=== PATIENT | female | born 1980 | race Caucasian/White ===

== ENCOUNTER 2016-03-07 22:08 | Emergency (ER) | payer OTHER ==
[~2016-03-07] VITALS: Ht 170.2 cm; Wt 64.0 kg
[~2016-03-07 22:08] MED LIST: CIPRO500 MG PO; CLEOCIN300 MG PO; MOTRIN600 MG PO; PERCOCET 5/31 TABLET PO; SUBOXONE 12 MG1 EACH SL; ZOFRAN ODT4 MG PO
[2016-03-07 22:50] LABS: HEMATOCRIT 38.2 % (36.0-46.0); MCH 28.9 PG (29.0-34.0); MCV 87.6 FL (83-99); MEAN PLAT.VOLUME 10.7 uM^3 (9.5-12.4); PLATELET COUNT 177 K/uL (156-360); RBC DIS.WIDTH-CV 13.2 % (11.8-14.6); RBC DIS.WIDTH-SD 41.8 % (39-53); RED BLOOD COUNT 4.36 M/uL (3.80-5.20); WHITE BLOOD COUNT 4.6 K/uL (4.1-10.2)
[2016-03-07 22:59] LABS: CHLORIDE 107 mEq/L (99-109); POTASSIUM 3.6 mEq/L (3.7-5.4); SODIUM 137 mEq/L (136-147)
[2016-03-07 23:00] LABS: GLUCOSE 72 mg/dL (70-99)
[2016-03-07 23:02] LABS: ANION GAP 10 MEQ/L (2-14)
[2016-03-07 23:04] LABS: GFR ESTIMATE (CALCULATED) > 59 mL/min/
[2016-03-07 23:05] LABS: UREA NITROGEN (BUN) 11 mg/dL (9-23)
[2016-03-08 01:51] LABS: INFLUENZA A VIRAL ANTIGEN NEGATIVE; INFLUENZA B VIRAL ANTIGEN NEGATIVE
[2016-03-08] MEDS ORDERED: VENTOLIN HFA18 GM IH (02:03)
[2016-03-08] MEDS ORDERED: MEDROL DOSEPAK4 MG PO (02:03)
[2016-03-08] MEDS ORDERED: ZITHROMAX Z-PA250 MG PO (02:03)
[2016-03-08] MEDS ORDERED: ROBITUSSIN AC,T10 ML PO (02:03)
[2016-03-08 02:33] VITALS: BP 127/81
== END 2016-03-08 02:35 | disposition home or self-care (01) ==
LOC: RME 22:08 → EME 22:08 → RME 03-08 02:35
PROVIDERS: Physician Assistant
DX: J06.9 Acute upper respiratory infection, unspecified (principal); J98.01 Acute bronchospasm; F17.200 Nicotine dependence, unspecified, uncomplicated
CPT/HCPCS: 71020; 80048; 85027; 87502; 94640; 99281; 99284; J7512

== ENCOUNTER 2016-03-12 19:38 | Emergency (ER) | payer OTHER ==
[~2016-03-12] VITALS: Ht 170.2 cm; Wt 63.7 kg
[~2016-03-12 19:38] MED LIST changes: +MEDROL DOSEPAK4 MG PO; +ROBITUSSIN AC,T10 ML PO; +VENTOLIN HFA18 GM IH; +ZITHROMAX Z-PA250 MG PO
[2016-03-12 20:06] LABS: HEMATOCRIT 43.1 % (36.0-46.0); MCHC 33.4 G/DL (30.0-36.0); MCV 86.7 FL (83-99); MEAN PLAT.VOLUME 10.2 uM^3 (9.5-12.4); RBC DIS.WIDTH-CV 13.4 % (11.8-14.6); RBC DIS.WIDTH-SD 41.9 % (39-53); RED BLOOD COUNT 4.97 M/uL (3.80-5.20)
[2016-03-12 20:07] LABS: PLATELET COUNT 233 K/uL (156-360); WHITE BLOOD COUNT 6.3 K/uL (4.1-10.2)
[2016-03-12 20:17] LABS: CHLORIDE 105 mEq/L (99-109); POTASSIUM 3.6 mEq/L (3.7-5.4); SODIUM 136 mEq/L (136-147)
[2016-03-12 20:18] LABS: GLUCOSE 82 mg/dL (70-99)
[2016-03-12 20:20] LABS: ANION GAP 11 MEQ/L (2-14)
[2016-03-12 20:22] LABS: GFR ESTIMATE (CALCULATED) > 59 mL/min/
[2016-03-12 20:23] LABS: UREA NITROGEN (BUN) 15 mg/dL (9-23)
[2016-03-12 20:26] LABS: TROP-I INTERPRETATION NEGATIVE; TROPONIN-I < 0.01 ng/mL (0.0-0.30)
[2016-03-12 23:50] LABS: TROP-I INTERPRETATION NEGATIVE; TROPONIN-I < 0.01 ng/mL (0.0-0.30)
[2016-03-13] MEDS ORDERED: XANAX0.25 MG PO (01:48)
[2016-03-13 02:10] VITALS: BP 114/54
== END 2016-03-13 04:05 | disposition home or self-care (01) ==
LOC: EME 19:38
PROVIDERS: Emergency Medicine
DX: R00.2 Palpitations (principal); F41.9 Anxiety disorder, unspecified; Z87.442 Personal history of urinary calculi; F17.200 Nicotine dependence, unspecified, uncomplicated
CPT/HCPCS: 71020; 80048; 84484; 85027; 90839; 93005; 99281; 99285; J2270

== ENCOUNTER 2016-06-23 21:25 | Emergency (ER) | payer OTHER ==
[~2016-06-23] VITALS: Ht 170.2 cm; Wt 56.2 kg
[~2016-06-23 21:25] MED LIST changes: +XANAX0.25 MG PO
[2016-06-23 23:10] LABS: MCHC 32.7 G/DL (30.0-36.0); MCV 85.6 FL (83-99); MEAN PLAT.VOLUME 10.3 uM^3 (9.5-12.4); PLATELET COUNT 247 K/uL (156-360); RBC DIS.WIDTH-SD 40.3 % (39-53); RED BLOOD COUNT 5.14 M/uL (3.80-5.20); WHITE BLOOD COUNT 5.6 K/uL (4.1-10.2)
[2016-06-23 23:25] LABS: CHLORIDE 107 mEq/L (99-109); POTASSIUM 4.7 mEq/L (3.7-5.4); SODIUM 140 mEq/L (136-147)
[2016-06-23 23:28] LABS: GLUCOSE 89 mg/dL (70-99)
[2016-06-23 23:29] LABS: ANION GAP 12 MEQ/L (2-14)
[2016-06-23 23:30] LABS: TOTAL BILIRUBIN 1.1 mg/dL (0.0-1.0)
[2016-06-23 23:31] LABS: ALKALINE PHOSPHATASE 82 IU/L (3-129); GFR ESTIMATE (CALCULATED) > 59 mL/min/; SERUM ETHYL ALCOHOL < 10 mg/dL
[2016-06-23 23:33] LABS: UREA NITROGEN (BUN) 10 mg/dL (9-23)
[2016-06-23] MEDS ORDERED: AUGMENTIN875 MG PO (23:43)
[2016-06-24 00:06] LABS: ADD MIUA? YES; BILIRUBIN NEGATIVE; BLOOD NEGATIVE; COLOR YELLOW ((YELLOW)); GLUCOSE (STRIP) NEGATIVE; KETONES NEGATIVE; LEUKOCYTES SMALL; NITRITE NEGATIVE; PROTEIN (STRIP) NEGATIVE; SPECIFIC GRAVITY 1.014 (1.000-1.030)
[2016-06-24 00:20] LABS: BACTERIA RARE /HPF; EPITHELIAL CELLS 2+ /HPF; MUCUS NONE SEEN /LPF; RED BLOOD CELLS 0-5 /HPF (0-5); WHITE BLOOD CELLS 0-5 /HPF (0-5)
[2016-06-24 00:21] LABS: ADD MEDTOX COMMENT Y; AMPHETAMINE NEGATIVE (500 ng/mL); BARBITURATES NEGATIVE (200 ng/mL); BENZODIAZEPINES NEGATIVE (150 ng/mL); COCAINE PRESUMPTIVE POSITIVE (150 ng/mL); INTERNAL CONTROLS VALID? YES; METHADONE NEGATIVE (200 ng/mL); METHAMPHETAMINE NEGATIVE (500 ng/mL); OPIATES (MORPHINE) NEGATIVE (100 ng/mL); OXYCODONE NEGATIVE (100 ng/mL); PHENCYCLIDINE NEGATIVE (25 ng/mL); PROPOXYPHENE NEGATIVE (300 ng/mL); THC CANNABINOIDS NEGATIVE (50 ng/mL); TRICYCLIC ANTIDEPRESSANTS NEGATIVE (300 ng/mL)
[2016-06-24 00:46] VITALS: BP 107/63
== END 2016-06-24 01:02 | disposition home or self-care (01) ==
LOC: EME 21:25
PROVIDERS: Emergency Medicine
DX: S02.40DA Maxillary fracture, left side, initial encounter for closed fracture (principal); S02.2XXA Fracture of nasal bones, initial encounter for closed fracture; S00.83XA Contusion of other part of head, initial encounter; F19.10 Other psychoactive substance abuse, uncomplicated; Y09 Assault by unspecified means; Y92.830 Public park as the place of occurrence of the external cause; Y07.9 Unspecified perpetrator of maltreatment and neglect; F17.200 Nicotine dependence, unspecified, uncomplicated; Z87.442 Personal history of urinary calculi
CPT/HCPCS: 70450; 70486; 72125; 80053; 81003; 84999; 85027; 99281; 99285; G0480; J3010; J7030

== ENCOUNTER 2016-07-10 19:13 | Inpatient (IN) | payer OTHER ==
[~2016-07-10] VITALS: Ht 170.2 cm; Wt 56.3 kg
[~2016-07-10 19:13] MED LIST changes: +AUGMENTIN875 MG PO
[2016-07-10 20:41] LABS: HEMATOCRIT 37.5 % (36.0-46.0); MCH 27.7 PG (29.0-34.0); MCHC 31.7 G/DL (30.0-36.0); MCV 87.2 FL (83-99); PLATELET COUNT 220 K/uL (156-360); RBC DIS.WIDTH-CV 13.3 % (11.8-14.6); RBC DIS.WIDTH-SD 42.4 % (39-53)
[2016-07-10 20:48] LABS: CHLORIDE 110 mEq/L (99-109); POTASSIUM 3.9 mEq/L (3.7-5.4); SODIUM 139 mEq/L (136-147)
[2016-07-10 20:51] LABS: GLUCOSE 83 mg/dL (70-99)
[2016-07-10 20:52] LABS: ANION GAP 10 MEQ/L (2-14); WHITE BLOOD COUNT 7.3 K/uL (4.1-10.2)
[2016-07-10 20:53] LABS: TOTAL BILIRUBIN 0.4 mg/dL (0.0-1.0)
[2016-07-10 20:54] LABS: ALKALINE PHOSPHATASE 101 IU/L (3-129); GFR ESTIMATE (CALCULATED) > 59 mL/min/
[2016-07-10 20:56] LABS: UREA NITROGEN (BUN) 12 mg/dL (9-23)
[2016-07-10 21:03] LABS: QUANTITATIVE HCG < 4.0 MIU/ML
[2016-07-10 23:14] LABS: ADD MIUA? NO; BILIRUBIN NEGATIVE; BLOOD NEGATIVE; COLOR YELLOW ((YELLOW)); GLUCOSE (STRIP) NEGATIVE; KETONES NEGATIVE; LEUKOCYTES NEGATIVE; NITRITE NEGATIVE; PROTEIN (STRIP) NEGATIVE; UCUL ADDED? NO; UROBILINOGEN 0.2 MG/DL (0.2-1.0)
[2016-07-10 23:15] LABS: C DIFF TOXIN POSITIVE (NEGATIVE); PROBE CHECK PASS
[2016-07-10 23:38] LABS: SPECIFIC GRAVITY 1.062 (1.000-1.030)
[2016-07-11] MEDS ORDERED: SUBOXONE 8 MG-1 EAC2 SL ×2 (00:09→00:10)
[2016-07-11] MEDS ORDERED: ZOLOFT50 MG PO (00:09)
[2016-07-11 05:44] VITALS: BP 108/68
[2016-07-11 07:44] LABS: ADD MIUA? YES; BILIRUBIN NEGATIVE; BLOOD SMALL; COLOR YELLOW ((YELLOW)); GLUCOSE (STRIP) NEGATIVE; KETONES NEGATIVE; LEUKOCYTES NEGATIVE; NITRITE NEGATIVE; PROTEIN (STRIP) NEGATIVE; SPECIFIC GRAVITY 1.039 (1.000-1.030); UROBILINOGEN 0.2 MG/DL (0.2-1.0)
[2016-07-11 07:47] LABS: BACTERIA NONE SEEN /HPF; EPITHELIAL CELLS RARE /HPF; MUCUS NONE SEEN /LPF; RED BLOOD CELLS 0-5 /HPF (0-5); UCUL ADDED? NO; WHITE BLOOD CELLS 0-5 /HPF (0-5)
[2016-07-11 08:46] VITALS: BP 108/60
[2016-07-11 15:54] VITALS: BP 96/60
[2016-07-11 21:20] VITALS: BP 112/71
[2016-07-12 00:18] VITALS: BP 180/60
[2016-07-12 07:45] VITALS: BP 114/70
[2016-07-12 09:02] LABS: EOSINOPHIL (%) 3.4 % (0-5); EOSINOPHIL COUNT 0.1 K/uL (0-0.3); HEMATOCRIT 31.6 % (36.0-46.0); IMMATURE GRANULOCYTE (%) 0.3 % (0.0-0.7); INSTRUMENT ABS NEUTROPHIL CT 1.7 K/uL; LYMPHOCYTE COUNT 1.1 K/uL (1.0-2.8); MCH 28.4 PG (29.0-34.0); MCHC 32.3 G/DL (30.0-36.0); MEAN PLAT.VOLUME 10.8 uM^3 (9.5-12.4); MONOCYTE COUNT 0.4 K/uL (0-0.8); NEUTROPHIL (%) 52.3 % (45-76); NEUTROPHIL COUNT 1.7 K/uL (1.8-6.4); PLATELET COUNT 167 K/uL (156-360); RBC DIS.WIDTH-CV 13.2 % (11.8-14.6); RBC DIS.WIDTH-SD 42.9 % (39-53); RED BLOOD COUNT 3.59 M/uL (3.80-5.20)
[2016-07-12 09:04] LABS: WHITE BLOOD COUNT 3.3 K/uL (4.1-10.2)
[2016-07-12 09:09] LABS: ANION GAP 7 MEQ/L (2-14); CHLORIDE 112 MEQ/L (99-109); GFR ESTIMATE (CALCULATED) > 59 mL/min/; GLUCOSE 75 mg/dL (70-99); MAGNESIUM 1.6 mg/dl (1.3-2.7); POTASSIUM 3.4 MEQ/L (3.7-5.4); SAMPLE HEMOLYSIS CHECK 0; SAMPLE ICTERIC CHECK 0; SAMPLE LIPEMIA CHECK 0; SODIUM 142 MEQ/L (136-147); UREA NITROGEN (BUN) 4 mg/dL (9-23)
[2016-07-12 15:45] VITALS: BP 116/60
[2016-07-12 23:38] VITALS: BP 109/65
[2016-07-13 08:10] VITALS: BP 111/57
[2016-07-13 09:27] LABS: HEMATOCRIT 34.1 % (36.0-46.0); MCH 27.7 PG (29.0-34.0); MCHC 32.3 G/DL (30.0-36.0); MCV 85.9 FL (83-99); MEAN PLAT.VOLUME 10.2 uM^3 (9.5-12.4); PLATELET COUNT 182 K/uL (156-360); RBC DIS.WIDTH-CV 13.2 % (11.8-14.6); RBC DIS.WIDTH-SD 40.7 % (39-53); RED BLOOD COUNT 3.97 M/uL (3.80-5.20)
[2016-07-13 09:42] LABS: CHLORIDE 108 mEq/L (99-109); POTASSIUM 3.6 mEq/L (3.7-5.4); SODIUM 140 mEq/L (136-147)
[2016-07-13 09:45] LABS: ANION GAP 10 MEQ/L (2-14)
[2016-07-13 09:48] LABS: GFR ESTIMATE (CALCULATED) > 59 mL/min/
[2016-07-13 09:49] LABS: UREA NITROGEN (BUN) 4 mg/dL (9-23)
[2016-07-13 09:51] LABS: GLUCOSE 125 mg/dL (70-99)
[2016-07-13] MEDS ORDERED: METOCLOPRAMIDE H5 MG PO (11:48)
[2016-07-13] MEDS ORDERED: NICOTINE PATCH1 EAC1 TD (11:48)
[2016-07-13] MEDS ORDERED: METRONIDAZOLE500 MG PO ×2 (11:48→12:40)
== END 2016-07-13 13:40 | disposition home or self-care (01) | DRG 372 ==
LOC: EME 19:13 → 5EAST 07-11 03:42 → EDOF 07-11 03:42 → 4EAST 07-11 05:27 → 5EAST 07-11 22:45 → 4EAST 07-11 22:45 → 5EAST 07-11 22:50 → 4EAST 07-11 22:54 → 5EAST 07-11 22:54
PROVIDERS: Hospitalist; Internal Medicine; Physician Assistant
DX: A04.7 Enterocolitis due to Clostridium difficile (principal); F11.20 Opioid dependence, uncomplicated; E87.6 Hypokalemia; G89.29 Other chronic pain; M54.9 Dorsalgia, unspecified; F41.9 Anxiety disorder, unspecified; F10.10 Alcohol abuse, uncomplicated; I34.1 Nonrheumatic mitral (valve) prolapse; F17.210 Nicotine dependence, cigarettes, uncomplicated; F32.9 Major depressive disorder, single episode, unspecified; J32.0 Chronic maxillary sinusitis; Z87.898 Personal history of other specified conditions; Z90.49 Acquired absence of other specified parts of digestive tract; Z87.442 Personal history of urinary calculi
CPT/HCPCS: 74177; 80048; 80053; 81003; 83735; 84702; 85025; 85027; 87177; 87493; 87506; 99281; 99285; J0572; J0574; J1650; J1885; J2270; J2405; J3010; J7030; J7120; S0030

== ENCOUNTER 2016-07-25 21:09 | Inpatient (IN) | payer OTHER ==
[~2016-07-25] VITALS: Ht 170.2 cm; Wt 58.0 kg
[~2016-07-25 21:09] MED LIST changes: +METOCLOPRAMIDE H5 MG PO; +METRONIDAZOLE500 MG PO; +NICOTINE PATCH1 EAC1 TD; +SUBOXONE 8 MG-1 EAC2 SL; +ZOLOFT50 MG PO
[2016-07-25 22:07] LABS: CHLORIDE 102 mEq/L (99-109); HEMATOCRIT 41.8 % (36.0-46.0); MCH 27.7 PG (29.0-34.0); MCHC 32.5 G/DL (30.0-36.0); MCV 85.1 FL (83-99); MEAN PLAT.VOLUME 10.2 uM^3 (9.5-12.4); POTASSIUM 4.4 mEq/L (3.7-5.4); RBC DIS.WIDTH-CV 13.7 % (11.8-14.6); RBC DIS.WIDTH-SD 42.5 % (39-53); SODIUM 137 mEq/L (136-147)
[2016-07-25 22:09] LABS: GLUCOSE 96 mg/dL (70-99)
[2016-07-25 22:11] LABS: ANION GAP 14 MEQ/L (2-14); TOTAL BILIRUBIN 1.8 mg/dL (0.0-1.0)
[2016-07-25 22:13] LABS: ALKALINE PHOSPHATASE 68 IU/L (3-129); GFR ESTIMATE (CALCULATED) 45 mL/min/
[2016-07-25 22:14] LABS: UREA NITROGEN (BUN) 19 mg/dL (9-23)
[2016-07-25 22:24] LABS: QUANTITATIVE HCG < 4.0 MIU/ML
[2016-07-25 22:41] LABS: PLATELET COUNT 264 K/uL (156-360); RED BLOOD COUNT 4.91 M/uL (3.80-5.20)
[2016-07-25 22:52] LABS: ADD MIUA? YES; BILIRUBIN SMALL; BLOOD MODERATE; COLOR AMBER ((YELLOW)); GLUCOSE (STRIP) NEGATIVE; KETONES NEGATIVE; LEUKOCYTES TRACE; NITRITE NEGATIVE; PROTEIN (STRIP) 100; SPECIFIC GRAVITY 1.028 (1.000-1.030); UROBILINOGEN 0.2 MG/DL (0.2-1.0)
[2016-07-25 23:17] LABS: BACTERIA 2+ /HPF; CASTS NONE SEEN /LPF; CRYSTALS NONE SEEN; EPITHELIAL CELLS 4+ /HPF; MUCUS NONE SEEN /LPF; RED BLOOD CELLS 20-30 /HPF (0-5); UCUL ADDED? NO; WHITE BLOOD CELLS 0-5 /HPF (0-5)
[2016-07-26 00:21] LABS: C DIFF TOXIN POSITIVE (NEGATIVE)
[2016-07-26 00:22] LABS: PROBE CHECK PASS
[2016-07-26] MEDS ORDERED: ZOFRAN4 MG PO (00:30)
[2016-07-26] MEDS ORDERED: BENTYL10 MG PO (00:30)
[2016-07-26] MEDS ORDERED: VANCOCIN HCL125 MG PO (00:30)
[2016-07-26 08:18] LABS: MCH 28.3 PG (29.0-34.0); MCHC 32.9 G/DL (30.0-36.0); MEAN PLAT.VOLUME 9.9 uM^3 (9.5-12.4); PLATELET COUNT 233 K/uL (156-360); RBC DIS.WIDTH-CV 13.9 % (11.8-14.6); RBC DIS.WIDTH-SD 43.8 % (39-53); RED BLOOD COUNT 4.42 M/uL (3.80-5.20); WHITE BLOOD COUNT 5.2 K/uL (4.1-10.2)
[2016-07-26 08:54] LABS: CHLORIDE 106 mEq/L (99-109); POTASSIUM 3.9 mEq/L (3.7-5.4); SODIUM 136 mEq/L (136-147)
[2016-07-26 08:56] LABS: GLUCOSE 107 mg/dL (70-99)
[2016-07-26 08:58] LABS: ANION GAP 8 MEQ/L (2-14)
[2016-07-26 08:59] VITALS: BP 91/53
[2016-07-26 09:00] LABS: GFR ESTIMATE (CALCULATED) 42 mL/min/
[2016-07-26 09:01] LABS: UREA NITROGEN (BUN) 25 mg/dL (9-23)
[2016-07-26 10:59] VITALS: BP 84/44
[2016-07-26 11:49] VITALS: BP 88/43
[2016-07-26 13:59] VITALS: BP 99/48
[2016-07-26 14:53] VITALS: BP 92/55
[2016-07-26 23:49] VITALS: BP 94/50
[2016-07-27 06:49] LABS: EOSINOPHIL (%) 4.2 % (0-5); EOSINOPHIL COUNT 0.2 K/uL (0-0.3); HEMATOCRIT 33.3 % (36.0-46.0); IMMATURE GRANULOCYTE (%) 0.5 % (0.0-0.7); INSTRUMENT ABS NEUTROPHIL CT 2.2 K/uL; LYMPHOCYTE COUNT 0.9 K/uL (1.0-2.8); MCH 28.2 PG (29.0-34.0); MCHC 32.1 G/DL (30.0-36.0); MCV 87.6 FL (83-99); MEAN PLAT.VOLUME 10.6 uM^3 (9.5-12.4); MONOCYTE (%) 11.8 % (3-12); MONOCYTE COUNT 0.5 K/uL (0-0.8); NEUTROPHIL (%) 58.5 % (45-76); NEUTROPHIL COUNT 2.2 K/uL (1.8-6.4); PLATELET COUNT 184 K/uL (156-360); RBC DIS.WIDTH-CV 13.9 % (11.8-14.6); RBC DIS.WIDTH-SD 44.5 % (39-53); WHITE BLOOD COUNT 3.8 K/uL (4.1-10.2)
[2016-07-27 07:45] VITALS: BP 95/52
[2016-07-27 07:47] LABS: ANION GAP 8 MEQ/L (2-14); CHLORIDE 110 MEQ/L (99-109); GFR ESTIMATE (CALCULATED) > 59 mL/min/; POTASSIUM 3.8 MEQ/L (3.7-5.4); SAMPLE HEMOLYSIS CHECK 0; SAMPLE ICTERIC CHECK 0; SAMPLE LIPEMIA CHECK 0; SODIUM 138 MEQ/L (136-147); UREA NITROGEN (BUN) 15 mg/dL (9-23)
[2016-07-27 07:49] LABS: GLUCOSE 77 mg/dL (70-99)
[2016-07-27 14:08] LABS: ADD MIUA? YES; BILIRUBIN NEGATIVE; BLOOD NEGATIVE; COLOR YELLOW ((YELLOW)); GLUCOSE (STRIP) NEGATIVE; KETONES NEGATIVE; LEUKOCYTES TRACE; NITRITE NEGATIVE; PROTEIN (STRIP) NEGATIVE; SPECIFIC GRAVITY 1.009 (1.000-1.030); UROBILINOGEN 0.2 MG/DL (0.2-1.0)
[2016-07-27 14:10] LABS: BACTERIA RARE /HPF; EPITHELIAL CELLS 1+ /HPF; MUCUS TRACE /LPF; RED BLOOD CELLS 0-5 /HPF (0-5); UCUL ADDED? NO; WHITE BLOOD CELLS 0-5 /HPF (0-5)
[2016-07-27 15:19] VITALS: BP 85/46
[2016-07-27 18:43] VITALS: BP 90/52
[2016-07-28 00:02] VITALS: BP 89/52
[2016-07-28 07:58] VITALS: BP 97/54
[2016-07-28] MEDS ORDERED: BENTYL20 MG PO (11:49)
[2016-07-28] MEDS ORDERED: VANCOMYCIN HCL125 MG PO (11:50)
[2016-07-29 20:35] LABS: ALPHA-2-MACROGLOBULIN 142 mg/dL (106-279); ALT 77 U/L (6-29); FIBROSIS STAGE F0 (()); GGT 29 U/L (3-50); HAPTOGLOBIN 189 mg/dL (43-212); REFERENCE ID 1545118 (()); TOTAL BILIRUBIN 0.5 mg/dL (0.2-1.2)
[2016-07-30 18:26] LABS: HEPATITIS C GENOTYPE+ 1a (())
== END 2016-07-28 13:05 | disposition home or self-care (01) | DRG 372 ==
LOC: EME 21:09 → EXP 21:09 → 5SOUTH 07-26 05:23 → EDOF 07-26 05:23 → 5SOUTH 07-26 14:33
PROVIDERS: Hospitalist; Physician Assistant
DX: A04.7 Enterocolitis due to Clostridium difficile (principal); F17.210 Nicotine dependence, cigarettes, uncomplicated; F32.9 Major depressive disorder, single episode, unspecified; F41.9 Anxiety disorder, unspecified; F10.10 Alcohol abuse, uncomplicated; N39.0 Urinary tract infection, site not specified; F11.10 Opioid abuse, uncomplicated; I34.1 Nonrheumatic mitral (valve) prolapse; E86.0 Dehydration; B18.2 Chronic viral hepatitis C; Z88.2 Allergy status to sulfonamides
CPT/HCPCS: 80048; 80053; 81003; 82172 90; 82247 90; 82977 90; 83010 90; 83883 90; 84460 90; 84702; 85025; 85027; 87086; 87177; 87329; 87493; 87506; 87902 90; 99281; 99285; J0572; J0574; J1170; J1650; J1885; J1956; J2405; J3010; J7030; S0030

== ENCOUNTER 2016-10-25 11:12 | Emergency (ER) | payer OTHER ==
[~2016-10-25] VITALS: Ht 170.2 cm; Wt 57.3 kg
[~2016-10-25 11:12] MED LIST changes: +BENTYL10 MG PO; +BENTYL20 MG PO; +VANCOCIN HCL125 MG PO; +VANCOMYCIN HCL125 MG PO; +ZOFRAN4 MG PO
[2016-10-25 12:21] LABS: HEMATOCRIT 40.6 % (36.0-46.0); MCH 28.2 PG (29.0-34.0); MCV 85.5 FL (83-99); MEAN PLAT.VOLUME 10.2 uM^3 (9.5-12.4); PLATELET COUNT 205 K/uL (156-360); RBC DIS.WIDTH-CV 13.2 % (11.8-14.6); RBC DIS.WIDTH-SD 41.2 % (39-53); RED BLOOD COUNT 4.75 M/uL (3.80-5.20); WHITE BLOOD COUNT 4.6 K/uL (4.1-10.2)
[2016-10-25 12:32] LABS: CHLORIDE 109 mEq/L (99-109); POTASSIUM 3.7 mEq/L (3.7-5.4); SODIUM 137 mEq/L (136-147)
[2016-10-25 12:34] LABS: GLUCOSE 100 mg/dL (70-99)
[2016-10-25 12:35] LABS: ANION GAP 9 MEQ/L (2-14)
[2016-10-25 12:37] LABS: GFR ESTIMATE (CALCULATED) > 59 mL/min/
[2016-10-25 12:38] LABS: UREA NITROGEN (BUN) 14 mg/dL (9-23)
[2016-10-25 13:18] LABS: QUANTITATIVE HCG < 4.0 MIU/ML
[2016-10-25 13:21] LABS: ADD MIUA? YES; BILIRUBIN SMALL; BLOOD SMALL; GLUCOSE (STRIP) NEGATIVE; KETONES NEGATIVE; LEUKOCYTES MODERATE; NITRITE POSITIVE; PROTEIN (STRIP) 30
[2016-10-25 13:22] LABS: COLOR DK YELLOW ((YELLOW))
[2016-10-25 13:40] LABS: BACTERIA 1+ /HPF; EPITHELIAL CELLS 4+ /HPF; MUCUS 4+ /LPF; RED BLOOD CELLS 0-5 /HPF (0-5); UCUL ADDED? YES; WHITE BLOOD CELLS TNTC /HPF (0-5)
[2016-10-25] MEDS ORDERED: ULTRAM50 MG PO (14:39)
[2016-10-25] MEDS ORDERED: CIPRO500 MG PO (14:39)
[2016-10-25] MEDS ORDERED: ZOFRAN ODT4 MG PO (14:39)
[2016-10-25 15:44] VITALS: BP 103/57
== END 2016-10-25 15:47 | disposition home or self-care (01) ==
LOC: EME 11:12
DX: K52.9 Noninfective gastroenteritis and colitis, unspecified (principal); N39.0 Urinary tract infection, site not specified; Z87.442 Personal history of urinary calculi; Z90.49 Acquired absence of other specified parts of digestive tract; F17.200 Nicotine dependence, unspecified, uncomplicated
CPT/HCPCS: 74176; 80048; 81003; 84702; 85027; 87077; 87086; 87186; 99281; 99285; J1885; J3010; J7030

== ENCOUNTER 2017-01-07 19:11 | Emergency (ER) | payer OTHER ==
[~2017-01-07] VITALS: Ht 170.2 cm; Wt 63.3 kg
[~2017-01-07 19:11] MED LIST changes: +ULTRAM50 MG PO
[2017-01-07 19:48] LABS: HEMATOCRIT 32.4 % (36.0-46.0); MCH 26.9 PG (29.0-34.0); MCHC 32.1 G/DL (30.0-36.0); MCV 83.9 FL (83-99); MEAN PLAT.VOLUME 10.8 uM^3 (9.5-12.4); PLATELET COUNT 165 K/uL (156-360); RBC DIS.WIDTH-CV 14.1 % (11.8-14.6); RBC DIS.WIDTH-SD 43.4 % (39-53); RED BLOOD COUNT 3.86 M/uL (3.80-5.20); WHITE BLOOD COUNT 3.2 K/uL (4.1-10.2)
[2017-01-07 19:54] LABS: ADD MIUA? YES; BILIRUBIN NEGATIVE; BLOOD NEGATIVE; COLOR STRAW ((YELLOW)); GLUCOSE (STRIP) NEGATIVE; KETONES NEGATIVE; LEUKOCYTES TRACE; NITRITE NEGATIVE; PROTEIN (STRIP) NEGATIVE; SPECIFIC GRAVITY 1.006 (1.000-1.030); UROBILINOGEN 0.2 MG/DL (0.2-1.0)
[2017-01-07 19:56] LABS: CHLORIDE 112 mEq/L (99-109); POTASSIUM 3.7 mEq/L (3.7-5.4); SODIUM 135 mEq/L (136-147)
[2017-01-07 19:58] LABS: GLUCOSE 105 mg/dL (70-99)
[2017-01-07 19:59] LABS: ANION GAP 6 MEQ/L (2-14)
[2017-01-07 20:02] LABS: GFR ESTIMATE (CALCULATED) > 59 mL/min/
[2017-01-07 20:03] LABS: UREA NITROGEN (BUN) 14 mg/dL (9-23)
[2017-01-07 20:04] LABS: BACTERIA RARE /HPF; EPITHELIAL CELLS 1+ /HPF; MUCUS TRACE /LPF; RED BLOOD CELLS 0-5 /HPF (0-5); UCUL ADDED? NO; WHITE BLOOD CELLS 0-5 /HPF (0-5)
[2017-01-07] MEDS ORDERED: KEFLEX500 MG PO (21:40)
[2017-01-07] MEDS ORDERED: MOTRIN600 MG PO (21:40)
[2017-01-07 22:19] VITALS: BP 115/73
== END 2017-01-07 22:20 | disposition home or self-care (01) ==
LOC: EME 19:11
PROVIDERS: Physician Assistant Medical
DX: R10.9 Unspecified abdominal pain (principal); R50.9 Fever, unspecified; Z87.442 Personal history of urinary calculi; F41.9 Anxiety disorder, unspecified; F32.9 Major depressive disorder, single episode, unspecified; Z90.49 Acquired absence of other specified parts of digestive tract; F17.200 Nicotine dependence, unspecified, uncomplicated; Z88.2 Allergy status to sulfonamides
CPT/HCPCS: 74177; 80048; 81003; 85027; 99281; 99283; J1885; J7030

== ENCOUNTER 2017-05-13 21:46 | Emergency (ER) | payer OTHER ==
[~2017-05-13] VITALS: Ht 170.2 cm; Wt 69.4 kg
[~2017-05-13 21:46] MED LIST changes: +KEFLEX500 MG PO
[2017-05-13 21:49] VITALS: BP 126/65
== END 2017-05-13 23:26 | disposition left against medical advice (07) ==
LOC: EME 21:46
DX: R50.9 Fever, unspecified (principal); R05 Cough; Z53.21 Procedure and treatment not carried out due to patient leaving prior to being seen by health care provider

== ENCOUNTER 2017-07-10 16:28 | Emergency (ER) | payer OTHER ==
[~2017-07-10] VITALS: Ht 170.2 cm; Wt 70.0 kg
[2017-07-10 17:06] LABS: APPEARANCE SL.HAZY ((CLEAR)); BILIRUBIN NEGATIVE; BLOOD NEGATIVE; COLOR YELLOW ((YELLOW)); GLUCOSE (STRIP) NEGATIVE; KETONES NEGATIVE; LEUKOCYTES NEGATIVE; NITRITE NEGATIVE; PROTEIN (STRIP) NEGATIVE; SPECIFIC GRAVITY 1.015 (1.000-1.030); UROBILINOGEN 0.2 MG/DL (0.2-1.0)
[2017-07-10 17:16] LABS: BACTERIA NONE SEEN /HPF; CALCIUM OXALATE CRYSTALS 1+ /HPF; EPITHELIAL CELLS 2+ /HPF; MUCUS TRACE /LPF; RED BLOOD CELLS 0-5 /HPF (0-5); UCUL ADDED? NO; WHITE BLOOD CELLS 0-5 /HPF (0-5)
[2017-07-10] MEDS ORDERED: CLEOCIN300 MG PO (18:17)
[2017-07-10 18:29] VITALS: BP 132/82
== END 2017-07-10 18:37 | disposition home or self-care (01) ==
LOC: EME 16:28
PROVIDERS: Nurse Practitioner Family
DX: L98.8 Other specified disorders of the skin and subcutaneous tissue (principal); R10.30 Lower abdominal pain, unspecified; R22.2 Localized swelling, mass and lump, trunk; R51 Headache; R11.0 Nausea; Z86.14 Personal history of Methicillin resistant Staphylococcus aureus infection; Z88.2 Allergy status to sulfonamides; F17.200 Nicotine dependence, unspecified, uncomplicated
CPT/HCPCS: 76882; 81003; 99281; 99284